=== PATIENT | female | born 1995 | race Caucasian/White ===

== ENCOUNTER 2021-11-13 12:23 | Emergency (ER) | payer OTHER ==
[~2021-11-13] VITALS: Ht 165.1 cm; Wt 64.4 kg
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
--- NOTE | 2021-11-13 12:59 | NUR ---
PATIENT HAS 1.5CM LACERATED WOUND ON HER CHIN, ABRASION AND PAIN ON RIGHT HAND. PAIN, SWELLING, REDNESS AND DEFORMITY ON LEFT FOREARM. PAIN SCALE 6/10
--- NOTE | 2021-11-13 13:25 | NUR ---
VARUN MONTENEGRO BOYFRIEND [phone]
[2021-11-13] MEDS ORDERED: LIDOCAINE /MPF 1% VIAL 5 ML VIAL ONE (14:18)
[2021-11-13] MEDS ORDERED: LIDOCAINE 1%-EPI 1:100,000 50 ML VIAL IJ ONE (14:30)
[2021-11-13] MEDS ORDERED: TDAP [DIPH/PERTUSSIS/TET] 0.5 ML VIAL IM ONE ×2 (14:30→15:10)
--- NOTE | 2021-11-13 14:30 | NUR ---
URINE COLLECTED AND SENT TO LAB
[2021-11-13 14:42] LABS: BILIRUBIN,URINE NEGATIVE (NEGATIVE); COLOR,URINE YELLOW (YELLOW); LEUKOCYTE ESTERASE ,URINE NEGATIVE (NEGATIVE); NITRITE, URINE NEGATIVE (NEGATIVE); PH,URINE 6.5 (5.0-8.0); PROTEIN,URINE NEGATIVE (NEGATIVE); UGLUCOSE NEGATIVE (NEGATIVE); UROBILINOGEN,URINE 0.2 EU/dL (0.2)
[2021-11-13] MEDS ORDERED: LIDOCAINE HCL/PF 1% 30 ML SDV ONE (14:42)
--- NOTE | 2021-11-13 14:46 | NUR ---
LIDOCAINE WITH 1% EPI IS OUT OF STOCK PER PHARMACY
[2021-11-13 15:08] LABS: BACTERIA,URINE None seen /HPF (None Seen); SQUAMOUS EPITHELIAL CELL,UR 0-2 /HPF (None Seen); WBC,URINE NONE SEEN /HPF (0-3)
[2021-11-13 15:09] LABS: RBC,URINE 0-2 /HPF (0-2)
--- NOTE | 2021-11-13 15:18 | NUR ---
TETANUS SHOTS GIVEN
--- NOTE | 2021-11-13 15:18 | NUR ---
SUTURING OF WOUND DONE
[2021-11-13] MEDS ORDERED: NAPR-1192 PO (16:27)
--- NOTE | 2021-11-13 16:57 | NUR ---
Patient discharged to home in stable condition. Written and verbal after care instructions given. Patient verbalizes understanding of instruction.
[2021-11-13 16:58] VITALS: BP 133/81
== END 2021-11-13 17:00 | disposition home or self-care (01) ==
LOC: ER 12:40
DX: S62.326A Displaced fracture of shaft of fifth metacarpal bone, right hand, initial encounter for closed fracture (principal); S01.81XA Laceration without foreign body of other part of head, initial encounter; S50.12XA Contusion of left forearm, initial encounter; S60.221A Contusion of right hand, initial encounter; S20.312A Abrasion of left front wall of thorax, initial encounter; V49.49XA Driver injured in collision with other motor vehicles in traffic accident, initial encounter; Y93.89 Activity, other specified; Y92.413 State road as the place of occurrence of the external cause; Y99.8 Other external cause status
CPT/HCPCS: 12013; 29130; 71045; 73090; 73110 ×2; 73130 ×2; 81001; 84703; 90471; 90715; 99284; A6403; J3490 ×3